=== PATIENT | male | born 1960 | race Caucasian/White ===

== ENCOUNTER 2017-06-19 20:09 | Emergency (ER) | payer BC ==
[~2017-06-19] VITALS: Ht 188 cm; Wt 137.1 kg
[2017-06-19] MEDS ORDERED: ONDANSETRON 2MG/ML, 2ML IVPush ONE (21:00)
[2017-06-19] MEDS ORDERED: HYDROmorphone 1 MG/ML, 1ML IVPush PRN (21:00)
[2017-06-19] MEDS ORDERED: SODIUM CHLORIDE FLUSH 10ML SYR IVF ONE (21:00)
[2017-06-19] MEDS ORDERED: SODIUM CHLORIDE 0.9% 1,000ML IV ONE (21:00)
[2017-06-19 21:04] LABS: HEMATOCRIT 39.4 % (39.2-51.8); HEMOGLOBIN 13.2 g/dL (13.7-18.0); WHITE BLOOD COUNT 9.1 x10^3/uL (3.4-10)
[2017-06-19 21:12] LABS: ASPARTATE AMINO TRANSFERASE 13 U/L (15-37); BLOOD UREA NITROGEN 22 mg/dL (7-18)
[2017-06-19 21:22] LABS: PATH.CAST-FLAG NOT PRESENT; SPERM-FLAG NOT PRESENT; SRC-FLAG NOT PRESENT; XTAL-FLAG NOT PRESENT; YLC-FLAG NOT PRESENT
[2017-06-19] MEDS ORDERED: HYDROmorphone 1 MG/ML, 1ML ONE (21:42)
[2017-06-19] MEDS ORDERED: ONDANSETRON 2MG/ML, 2ML ONE (21:42)
[2017-06-19 22:00] VITALS: BP 137/90
== END 2017-06-19 22:42 | disposition home or self-care (01) ==
LOC: ED 22:21
DX: N20.1 Calculus of ureter (principal); E11.9 Type 2 diabetes mellitus without complications; E78.5 Hyperlipidemia, unspecified; I10 Essential (primary) hypertension
CPT/HCPCS: 36415; 74176; 80053; 81001; 85025; 87086; 96361; 96374; 96375; 99285; J1170; J2405; J7030